=== PATIENT | male | born 1940 | race Caucasian/White ===

== ENCOUNTER → 2017-05-25 | Outpatient (CLI) | payer OTHER | END | disposition disaster alternative care site (69) | LOC: GAMB 19:50 → EDBD 19:50 | DX: S09.93XA Unspecified injury of face, initial encounter (principal); S01.80XA Unspecified open wound of other part of head, initial encounter; I10 Essential (primary) hypertension; H57.12 Ocular pain, left eye; R51 Headache; V48.6XXA Car passenger injured in noncollision transport accident in traffic accident, initial encounter ==